=== PATIENT | male | born 1950 | race Caucasian/White ===

== ENCOUNTER 2017-03-23 11:06 | Emergency (ER) | payer OTHER ==
[2017-03-23] MEDS ORDERED: Bacitracin Oint 1 GM U/D Packet TOP ONE (11:15)
--- NOTE | 2017-03-23 11:17 | EDM.PDOC ---
ED HPI GENERAL MEDICAL PROBLEM - General Chief Complaint: Laceration Stated Complaint: CUT ON HEAD Time Seen by Provider: 03/23/17 11:06 Source of Information: Reports: Patient History Limitations: Reports: No Limitations - History of Present Illness INITIAL COMMENTS - FREE TEXT/NARRATIVE: HISTORY AND PHYSICAL: History of present illness: [Comes to the emergency room complaining of a laceration to his scalp. He is employed by [employer] and states that this morning he hit the top of his head on some metal bleachers. Had some bleeding at the time of injury. He denies any pain and did not experience any loss of consciousness.. He has no other complaints or concerns at this time. Tetanus was within the last 5 years.] Review of systems: As per history of present illness and below otherwise all systems reviewed and negative. Past medical history: As per history of present illness and as reviewed below otherwise noncontributory. Surgical history: As per history of present illness and as reviewed below otherwise noncontributory. Social history: No reported history of drug or alcohol abuse. Family history: As per history of present illness and as reviewed below otherwise noncontributory. Physical exam: HEENT: 2.5 cm laceration to midline parietal scalp. Is mostly superficial but does have some gaping to the anterior aspect. Wound is cleaned with copious amounts of normal saline and Betadine. Extremities: Neurovascular unremarkable. Neuro: Awake, alert, oriented. Motor and sensory unremarkable throughout. Exam nonfocal. Impression: [Scalp Laceration] Plan: [Wound closed with one staple. See procedure note. Return to ER in 7 days for staple removal. His agreement with today's plan.] Definitive disposition and diagnosis as appropriate pending reevaluation and review of above. Head Pain Score (Numeric/FACES): 4 - Related Data Allergies Allergy/AdvReac Type Severity Reaction Status Date / Time No Known Allergies Allergy Verified 03/23/17 11:08 Home Meds: Home Meds . [Unable to Verify Home Med List] 03/23/17 [History] Past Medical History Cardiovascular History: Reports: High Cholesterol, Hypertension Social & Family History - Tobacco Use Smoking Status *Q: Never Smoker Second Hand Smoke Exposure: No - Caffeine Use Caffeine Use: Reports: Coffee - Recreational Drug Use Recreational Drug Use: No ED ROS GENERAL - Review of Systems Review Of Systems: ROS reveals no pertinent complaints other than HPI. ED EXAM, SKIN/RASH Exam: See Below ED SKIN PROCEDURES - Laceration/Wound Repair Midline Head Lac/wound length in cm: 2.5 Appearance: superficial, clean Distal NVT: neuro & vascular intact Skin prep: providone-iodine (betadine), saline Closed with: esvin # of sutures: 1 Sterile dressing applied: nurse Tetanus status addressed: Yes Complications: No Course - Orders/Labs/Meds Meds: Medications Discontinued Medications Generic Name Dose Route Start Last Admin Trade Name Michelle PRN Reason Stop Dose Admin Bacitracin 1 dose 03/23/17 11:15 Bacitracin Oint 1 Gm TOP 03/23/17 11:16 ONETIME ONE Departure - Departure Time of Disposition: 11:20 Disposition: Home, Self-Care 01 Condition: good Clinical Impression: Laceration of scalp Qualifiers: Encounter type: initial encounter Qualified Code(s): S01.01XA - Laceration without foreign body of scalp, initial encounter - Discharge Information Instructions: Laceration Care, Adult Referrals: PCP,None [Primary Care Provider] - Forms: ED Department Discharge Additional Instructions: The following information is given to patients seen in the emergency department who are being discharged to home. This information is to outline your options for follow-up care. We provide all patients seen in our emergency department with a follow-up referral. The need for follow-up, as well as the timing and circumstances, are variable depending upon the specifics of your emergency department visit. If you don't have a primary care physician on staff, we will provide you with a referral. We always advise you to contact your personal physician following an emergency department visit to inform them of the circumstance of the visit and for follow-up with them and/or the need for any referrals to a consulting specialist. The emergency department will also refer you to a specialist when appropriate. This referral assures that you have the opportunity for follow-up care with a specialist. All of these measure are taken in an effort to provide you with optimal care, which includes your follow-up. Under all circumstances we always encourage you to contact your private physician who remains a resource for coordinating your care. When calling for follow-up care, please make the office aware that this follow-up is from your recent emergency room visit. If for any reason you are refused follow-up, please contact the [facility] emergency department at and asked to speak to the emergency department charge nurse. FRANCIE Carrillo [facility] [address] [place] [id number] Followup with your primary care provider in 48-72 hours. Return to ER in 7 days to have staple removed. Tylenol or ibuprofen as needed for discomfort. Return to ER as needed as discussed.
[2017-03-23 11:28] VITALS: BP 125/76
== END 2017-03-23 11:26 | disposition home or self-care (01) ==
LOC: MW.ED 11:06
DX: S01.01XA Laceration without foreign body of scalp, initial encounter (principal); E78.00 Pure hypercholesterolemia, unspecified; I10 Essential (primary) hypertension; W22.8XXA Striking against or struck by other objects, initial encounter
CPT/HCPCS: 12001; 99282

== ENCOUNTER 2017-03-30 15:50 | Emergency (ER) | payer OTHER | END 2017-03-30 16:31 | disposition home or self-care (01) | LOC: MW.ED 15:50 | DX: Z48.02 Encounter for removal of sutures (principal) ==

== ENCOUNTER 2017-06-17 22:05 | Emergency (ER) | payer OTHER ==
[2017-06-17] MEDS ORDERED: Bacitracin Oint 1 GM U/D Packet TOP ONE (22:17)
--- NOTE | 2017-06-17 22:23 | EDM.PDOC ---
ED HPI GENERAL MEDICAL PROBLEM - General Chief Complaint: Laceration Stated Complaint: LACERATION RT HAND/MIDDLE FINGER Time Seen by Provider: 06/17/17 22:12 - History of Present Illness INITIAL COMMENTS - FREE TEXT/NARRATIVE: HISTORY AND PHYSICAL: History of present illness: The patient is a 67-year-old male whose tetanus is up-to-date and presents with injury to his right middle finger that occurred on a saw while at home just prior to arrival. The patient says he was having no systemic complaints when this occurred and the only reason why he came to the ER as it wouldn't stop bleeding. He placed a dressing on it and came here. He has no neurosensory changes in the finger and no other injury to the hand except a very superficial abrasion to the right fourth tuft soft tissue. He has full range of motion of all of his digits. He is right-hand dominant Review of systems: As per history of present illness and below otherwise all systems reviewed and negative. Past medical history: As per history of present illness and as reviewed below otherwise noncontributory. Surgical history: As per history of present illness and as reviewed below otherwise noncontributory. Social history: No reported history of drug or alcohol abuse. Family history: As per history of present illness and as reviewed below otherwise noncontributory. Physical exam: Gen.: Well-developed well-nourished overweight man who is nontoxic HEENT: Atraumatic, normocephalic, negative for conjunctival pallor or scleral icterus, mucous membranes moist, trachea midline. Lungs: Clear to auscultation, breath sounds equal bilaterally, chest nontender. Heart: S1S2, regular ate and rhythm no overt murmurs Abdomen: Deferred Pelvis: Deferred Genitourinary: Deferred. Rectal: Deferred. Extremities: Atraumatic with the exception of the tuft soft tissue of digits 3 and 4 on the right hand--- and digit 4 there is a very superficial abrasion without any gross swelling or tenderness and at the tuft soft tissue of digit 3 there is a 1 cm area of tissue loss seen without any active bleeding or tenderness. There is full range of motion of the digit flexion and extension. All other digits of the hand and the remainder of the right upper extremity are without defects or deformities. Neurovascular unremarkable. Neuro: Awake, alert, oriented. Gait is intact Motor and sensory unremarkable throughout. Exam nonfocal. Diagnostics: [] Therapeutics: wound care Impression: Superficial laceration right third digit with skin loss Definitive disposition and diagnosis as appropriate pending reevaluation and review of above. - Related Data Allergies Allergy/AdvReac Type Severity Reaction Status Date / Time No Known Allergies Allergy Verified 03/23/17 11:08 Home Meds: Home Meds . [Unable to Verify Home Med List] 03/23/17 [History] Past Medical History Cardiovascular History: Reports: High Cholesterol, Hypertension Social & Family History - Tobacco Use Smoking Status *Q: Never Smoker Second Hand Smoke Exposure: No - Caffeine Use Caffeine Use: Reports: Coffee - Recreational Drug Use Recreational Drug Use: No ED ROS GENERAL - Review of Systems Review Of Systems: ROS reveals no pertinent complaints other than HPI. ED EXAM, SKIN/RASH Exam: See Below (see dictation) Course - Orders/Labs/Meds Orders: Active Orders 24 hr Category Date Time Status Communication Order [RC] STAT Care 06/17/17 22:17 Ordered Bacitracin [Bacitracin Oint 1 GM] Med 06/17/17 22:17 Once 1 dose TOP ONETIME ONE Departure - Departure Time of Disposition: 22:21 Disposition: Home, Self-Care 01 Condition: Good Clinical Impression: Laceration of finger Qualifiers: Encounter type: initial encounter Finger: middle finger Damage to nail status: without damage Foreign body presence: without foreign body Laterality: right Qualified Code(s): S61.212A - Laceration without foreign body of right middle finger without damage to nail, initial encounter - Discharge Information Forms: ED Department Discharge Additional Instructions: The following information is given to patients seen in the emergency department who are being discharged to home. This information is to outline your options for follow-up care. We provide all patients seen in our emergency department with a follow-up referral. The need for follow-up, as well as the timing and circumstances, are variable depending upon the specifics of your emergency department visit. If you don't have a primary care physician on staff, we will provide you with a referral. We always advise you to contact your personal physician following an emergency department visit to inform them of the circumstance of the visit and for follow-up with them and/or the need for any referrals to a consulting specialist. The emergency department will also refer you to a specialist when appropriate. This referral assures that you have the opportunity for followup care with a specialist. All of these measure are taken in an effort to provide you with optimal care, which includes your followup. Under all circumstances we always encourage you to contact your private physician who remains a resource for coordinating your care. When calling for followup care, please make the office aware that this follow-up is from your recent emergency room visit. If for any reason you are refused follow-up, please contact the [facility] emergency department at and ask to speak to the emergency department charge nurse. [facility]- Internal Medicine and Family [address] [id number] Please keep area clean and dry for the next 24 hours then remove dressing and cleanse with mild soap and water pat dry and apply bacitracin or Neosporin. If you need to cover the area please do not use Band-Aids but only gauze as the Band-Aids will make the tissue moist. Return to ER as needed and as discussed and follow-up with your provider in the clinic in the next few days for further care and evaluation. - My Orders Last 24 Hours: My Active Orders 06/17/17 22:17 Communication Order [RC] STAT Bacitracin [Bacitracin Oint 1 GM] 1 dose TOP ONETIME ONE - Assessment/Plan Last 24 Hours: My Active Orders 06/17/17 22:17 Communication Order [RC] STAT Bacitracin [Bacitracin Oint 1 GM] 1 dose TOP ONETIME ONE
[2017-06-17 22:38] VITALS: BP 135/71
== END 2017-06-17 22:39 | disposition home or self-care (01) ==
LOC: MW.ED 22:05
DX: S61.212A Laceration without foreign body of right middle finger without damage to nail, initial encounter (principal); S60.414A Abrasion of right ring finger, initial encounter; I10 Essential (primary) hypertension; E78.00 Pure hypercholesterolemia, unspecified; W27.8XXA Contact with other nonpowered hand tool, initial encounter; Y92.009 Unspecified place in unspecified non-institutional (private) residence as the place of occurrence of the external cause
CPT/HCPCS: 99282

== ENCOUNTER 2020-01-10 05:19 | Day surgery (SDC) | payer OTHER ==
[2020-01-10] MEDS ORDERED: HYDROmorphone 1 MG/ML Syringe IVPUSH ONE ×2 (05:44→06:11)
[2020-01-10] MEDS ORDERED: Ondansetron 4 MG/2 ML SDV IVPUSH ONE (05:44)
--- NOTE | 2020-01-10 05:48 | CR ---
INDICATION: Shoulder pain with deformity TECHNIQUE: Shoulder radiograph 1 view right COMPARISON: None FINDINGS: Bone: No acute fractures or aggressive bone lesions are identified. Joint: Inferior dislocation the glenohumeral joint is noted. The acromioclavicular joint is unremarkable. Soft tissue: Unremarkable. The visualized hemithorax is unremarkable in appearance. No radiopaque foreign bodies are seen. IMPRESSIONS: 1. Inferior dislocation the glenohumeral joint is noted. 2. Complete radiographic assessment will require at least an additional orthogonal view. Dictated by Vance Ivan MD @ 01/10/2020 5:46:27 AM Dictated by: Vance Ivan MD @ 01/10/2020 05:46:33 (Electronically Signed)
--- NOTE | 2020-01-10 06:01 | EDM.PDOC ---
ED HPI GENERAL MEDICAL PROBLEM - General Chief Complaint: Upper Extremity Injury/Pain Stated Complaint: SPOKE TO NURSE Time Seen by Provider: 01/10/20 05:28 Source of Information: Reports: Patient - History of Present Illness INITIAL COMMENTS - FREE TEXT/NARRATIVE: CC shoulder pain HPI: This is a 69-year-old male that slipped and fell and is dislocated his right shoulder. PMHX/PSHX: Hypertension thumb surgery Social History: Negative for tobacco, negative for alcohol, negative for street drugs or marijuana Family history: Hypertension ROS: see chart PE: VS afebrile vital signs stable General: No apparent distress Head: Atraumatic normocephalic no lumps bumps or bruises Eyes: EOMI PERRLA scera white, conjuntiva pink Ears: TMs intact. No hemotympanum. No signs of infection or mastoid tenderness Nose: No epistaxis. Nares patent. No septal wall hematoma Throat: No pharyngeal erythema, exudate or tonsillar enlargement Neck: Supple. No cervical lymphadenopathy Chest wall: No point tenderness Heart: Regular rate and rhythm without murmur gallop or rub Lungs: Clear to auscultation and percussion without rale, rhonchi or wheeze. Abdomen: Soft nontender nondistended without guarding rigidity or rebound. Bowel sounds present. Neck: No spinal point tenderness full range of motion in all 6 directions Back: No spinal paraspinal or CVA tenderness Extremities: Limited range of motion squared off right shoulder Skin: Warm, dry and intact. No rashes, erythema or warmth Neurologic: Cranial nerves II through XII intact bilaterally. No focal motor or sensory deficits noted in the radial median ulnar and axillary nerve distributions Vascular: Bounding radial and ulnar pulses MDM: Differential diagnosis: Versus dislocation ED course: I made a few attempts at reduction without medications per the patient's request. I tried farer technique to no avail. Require conscious sedation. Orthopedics was called anesthesia was called patient will go to operating room for reduction Final Diagnosis: Dislocation Disposition: Admit to the OR R shoulder Pain Score (Numeric/FACES): 10 - Related Data Allergies Allergy/AdvReac Type Severity Reaction Status Date / Time No Known Allergies Allergy Verified 01/10/20 05:33 Home Meds: Home Meds . [Unable to Verify Home Med List] 03/23/17 [History] Past Medical History Cardiovascular History: Reports: High Cholesterol, Hypertension - Infectious Disease History Infectious Disease History: Reports: Chicken Pox Social & Family History - Tobacco Use Smoking Status *Q: Never Smoker - Caffeine Use Caffeine Use: Reports: Coffee - Recreational Drug Use Recreational Drug Use: No Review of Systems - Review of Systems Review Of Systems: Comprehensive ROS is negative, except as noted in HPI. ED EXAM, GENERAL - Physical Exam Exam: See Below Free Text/Narrative:: See my note Course - Vital Signs Last Recorded V/S: Last Vital Signs Temp 36.7 C 01/10/20 05:26 Pulse 89 01/10/20 05:26 Resp 20 01/10/20 05:26 BP Pulse Ox 98 01/10/20 05:26 - Orders/Labs/Meds Meds: Medications Discontinued Medications Generic Name Dose Route Start Last Admin Trade Name Michelle PRN Reason Stop Dose Admin Hydromorphone HCl 0.5 mg 01/10/20 05:44 Dilaudid IVPUSH 01/10/20 05:45 ONETIME ONE Ondansetron HCl 4 mg 01/10/20 05:44 Zofran IVPUSH 01/10/20 05:45 ONETIME ONE Departure - Departure Time of Disposition: 05:57 Disposition: Refer to Observation Clinical Impression: Dislocation of right shoulder joint Qualifiers: Encounter type: initial encounter Qualified Code(s): S43.004A - Unspecified dislocation of right shoulder joint, initial encounter - Discharge Information Instructions: Shoulder Dislocation, [id number] Referrals: PCP,Not In Area [Primary Care Provider] - Sepsis Event Note - Evaluation Sepsis Screening Result: No Definite Risk - Focused Exam Vital Signs: Vital Signs Temp Pulse Resp Pulse Ox 01/10/20 05:26 36.7 C 89 20 98 Date Exam was Performed: 01/10/20 Time Exam was Performed: 05:55
--- NOTE | 2020-01-10 06:13 | PCM.PREANE ---
Preanesthetic Assessment - Procedure Proposed Procedure: Reduce dislocated right shoulder - Anesthesia/Transfusion/Family Hx Anesthesia History: Prior Anesthesia Without Reaction Type of Anesthesia Reaction: Excessive Nausea/Vomiting - Review of Systems General: No Symptoms Pulmonary: No Symptoms Cardiovascular: No Symptoms Gastrointestinal: No Symptoms Neurological: No Symptoms Other: Reports: None - Physical Assessment NPO Status Date: 01/09/20 NPO Status Time: 11:55 Vital Signs: Last Vital Signs Temp 36.7 C 01/10/20 05:26 Pulse 89 01/10/20 05:26 Resp 20 01/10/20 05:26 BP Pulse Ox 98 01/10/20 05:26 Height: 5 ft 8 in Weight: 108.862 kg ASA Class: 2E Mental Status: Alert & Oriented x3 Dentition: Reports: Normal Dentition Thyro-Mental Finger Breadths: 3 Mouth Opening Finger Breadths: 3 ROM/Head Extension: Full Lungs: Clear to Auscultation, Normal Respiratory Effort Cardiovascular: Regular Rate, Regular Rhythm - Allergies Allergies/Adverse Reactions: Allergies Allergy/AdvReac Type Severity Reaction Status Date / Time No Known Allergies Allergy Verified 01/10/20 05:33 - Anesthesia Plan Free Text/Narrative:: Plan GETA Pre-Op Medication Ordered: None - Acknowledgements Anesthesia Type Planned: General Anesthesia Pt an Appropriate Candidate for the Planned Anesthesia: Yes Alternatives and Risks of Anesthesia Discussed w Pt/Guardian: Yes Pt/Guardian Understands and Agrees with Anesthesia Plan: Yes PreAnesthesia Questionnaire HEENT History: Reports: None Cardiovascular History: Reports: High Cholesterol, Hypertension Respiratory History: Reports: None Gastrointestinal History: Reports: GERD Genitourinary History: Reports: None Musculoskeletal History: Reports: None Neurological History: Reports: None Psychiatric History: Reports: None Endocrine/Metabolic History: Reports: None Hematologic History: Reports: None Immunologic History: Reports: None Oncologic (Cancer) History: Reports: None Dermatologic History: Reports: None - Infectious Disease History Infectious Disease History: Reports: Chicken Pox - Past Surgical History Musculoskeletal Surgical History: Reports: Other (See Below) (right thumb) - SUBSTANCE USE Smoking Status *Q: Never Smoker Recreational Drug Use History: No - HOME MEDS Home Medications: Home Meds Lisinopril [Zestril] 10 mg PO DAILY 01/10/20 [History] Simvastatin 80 mg PO DAILY 01/10/20 [History] amLODIPine Besylate [Amlodipine Besylate] 10 mg PO DAILY 01/10/20 [History] - CURRENT (IN HOUSE) MEDS Current Meds: Current Medications Discontinued Medications Hydromorphone HCl (Dilaudid) 0.5 mg IVPUSH ONETIME ONE Stop: 01/10/20 05:45 Last Admin: 01/10/20 06:02 Dose: 0.5 mg Ondansetron HCl (Zofran) 4 mg IVPUSH ONETIME ONE Stop: 01/10/20 05:45 Last Admin: 01/10/20 06:02 Dose: 4 mg
[2020-01-10] MEDS ORDERED: Midazolam 1 MG/ML 2 ML SDV ONE (06:25)
[2020-01-10] MEDS ORDERED: fentaNYL 100 MCG/2 ML SDV ONE (06:25)
[2020-01-10] MEDS ORDERED: Propofol 200 MG/20 ML SDV ONE (06:25)
--- NOTE | 2020-01-10 06:36 | PCM.CONS ---
H&P History of Present Illness - General Date of Service: 01/10/20 Admit Problem/Dx: Right shoulder dislocation Source of Information: Patient, Other (Dr. Brunson) History Limitations: Reports: No Limitations - History of Present Illness Initial Comments - Free Text/Narative: Patient is a 69-year-old right hand dominant male with right shoulder dislocation. Patient slipped and fell. He was seen in the emergency room. He was noted to have a shoulder dislocation. Attempts were made at reduction which were unsuccessful by the emergency room physician. He denies hand numbness. He denies other injuries. R shoulder Pain Score (Numeric/FACES): 10 - Related Data Allergies/Adverse Reactions: Allergies Allergy/AdvReac Type Severity Reaction Status Date / Time No Known Allergies Allergy Verified 01/10/20 05:33 Home Medications: Home Meds Lisinopril [Zestril] 10 mg PO DAILY 01/10/20 [History] Simvastatin 80 mg PO DAILY 01/10/20 [History] amLODIPine Besylate [Amlodipine Besylate] 10 mg PO DAILY 01/10/20 [History] Past Medical History HEENT History: Reports: None Cardiovascular History: Reports: High Cholesterol, Hypertension Respiratory History: Reports: None Gastrointestinal History: Reports: GERD Genitourinary History: Reports: None Musculoskeletal History: Reports: None Neurological History: Reports: None Psychiatric History: Reports: None Endocrine/Metabolic History: Reports: None Hematologic History: Reports: None Immunologic History: Reports: None Oncologic (Cancer) History: Reports: None Dermatologic History: Reports: None - Infectious Disease History Infectious Disease History: Reports: Chicken Pox - Past Surgical History Musculoskeletal Surgical History: Reports: Other (See Below) (right thumb) Social & Family History - Tobacco Use Smoking Status *Q: Never Smoker - Caffeine Use Caffeine Use: Reports: Coffee - Recreational Drug Use Recreational Drug Use: No H&P Review of Systems - Review of Systems: Review Of Systems: See Below Musculoskeletal: Reports: Shoulder Pain Exam - Exam Exam: See Below - Vital Signs Vital Signs: Last Vital Signs Temp 98.0 F 01/10/20 05:26 Pulse 89 01/10/20 05:26 Resp 20 01/10/20 05:26 BP Pulse Ox 98 01/10/20 05:26 Weight: 240 lb - Exam Physical Exam Comments:: Well-developed, well-nourished male Distress due to shoulder pain Skin intact Chest clear to auscultation Cardiac regular rate and rhythm Moves fingers Normal sensation to light touch in median, ulnar, and radial nerve distributions Radial pulses palpable Sepsis Event Note - Evaluation Sepsis Screening Result: No Definite Risk - Focused Exam Vital Signs: Vital Signs Temp Pulse Resp Pulse Ox 01/10/20 05:26 98.0 F 89 20 98 Date Exam was Performed: 01/10/20 Time Exam was Performed: 06:31 Consult PN Assessment/Plan Procedures: Procedures EMERGENCY DEPT VISIT (06/17/17) RPR S/N/AX/GEN/TRNK 2.5CM/< (03/23/17) X-RAY EXAM OF HUMERUS (04/14/17) Problem List Initiated/Reviewed/Updated: Yes Plan: Due to failed attempts in the emergency room and discussion of risks and benefits, he was consented for closed reduction in the operating room. His signed the consent because he is unable to sign due to shoulder dislocation. Crew been brought in for reduction the main OR.
--- NOTE | 2020-01-10 07:11 | PCM.OPNOTE ---
- General Post-Op/Procedure Note Date of Surgery/Procedure: 01/10/20 Operative Procedure(s): Closed reduction of right shoulder dislocation Findings: Right shoulder dislocation Pre Op Diagnosis: Right shoulder dislocation Post-Op Diagnosis: Right shoulder dislocation Anesthesia Technique: General ET Tube Primary Surgeon: Lalit Shin EBL in mLs: 0 Complications: None Free Text/Narrative:: Patient slipped and fell resulting in a right shoulder dislocation. Dislocation was unable to be reduced in the emergency room. The risks and benefits of closed reduction were discussed with the patient and his spouse. Patient consented to proceed and his spouse signed his consent because his dominant arm at a right shoulder dislocation. After general anesthesia and complete paralysis, closed reduction was performed with longitudinal traction and countertraction placed in the right axilla. The reduction was successful and the shoulder was felt to palpably reduce. Postreduction x-rays confirm the reduction. Patient was placed in a shoulder immobilizer. Name management: Ibuprofen Antibiotics not indicated Venous thromboembolus prophylaxis not indicated. Restrictions: Patient should remain in shoulder mobilizer except for hygiene. No external rotation greater than neutral. Refer to physical therapy after being seen in clinic for follow-up.
[2020-01-10] MEDS ORDERED: Rocuronium 100 MG/10 ML Syringe ONE (07:34)
[2020-01-10] MEDS ORDERED: fentaNYL 100 MCG/2 ML SDV IVPUSH PRN (07:39)
[2020-01-10] MEDS ORDERED: Atropine 0.1 MG/ML 10 ML Syringe IVPUSH PRN ×2 (07:39)
[2020-01-10] MEDS ORDERED: Naloxone 0.4 MG/ML Syringe IVPUSH PRN (07:39)
[2020-01-10] MEDS ORDERED: EPINEPHrine 1:10,000 1 MG/10 ML Syringe IVPUSH PRN (07:39)
--- NOTE | 2020-01-10 07:47 | CR ---
Right shoulder: Single AP view of the right shoulder was obtained. Comparison: Previous right shoulder study performed earlier on the same date (5:33 AM). Previous dislocation has been reduced. No discrete fracture or other bony abnormality is appreciated. Endotracheal tube is partially visualized lying at the lower level of the clavicles above the hemalatha. Impression: 1. Previous dislocation has been reduced. 2. Endotracheal tube is partially visualized and appears to be satisfactory in position as seen on this exam. Diagnostic code #2 Study was dictated in [place] Standard Time
[2020-01-10 08:59] VITALS: PULSE 65
[2020-01-10 09:00] VITALS: BP 113/70
--- NOTE | 2020-01-10 11:25 | PCM.POSTAN ---
POST ANESTHESIA ASSESSMENT - MENTAL STATUS Mental Status: Alert, Oriented - VITAL SIGNS Vital Signs: Last Vital Signs Temp 97.7 F 01/10/20 08:12 Pulse 65 01/10/20 08:40 Resp 14 01/10/20 08:59 BP 113/70 01/10/20 08:59 Pulse Ox 96 01/10/20 09:39 - RESPIRATORY Respiratory Status: Respiratory Rate WNL, Airway Patent, Supplemental Oxygen ( pt refuses) - CARDIOVASCULAR CV Status: Pulse Rate WNL, Blood Pressure Stable - GASTROINTESTINAL GI Status: No Symptoms - POST OP HYDRATION Hydration Status: Adequate & Stable
--- NOTE | 2020-01-10 11:25 | PCM48HPAN ---
Post Anesthesia Note - EVALUATION WITHIN 48HRS OF ANESTHETIC Vital Signs in Normal Range: Yes Patient Participated in Evaluation: Yes Respiratory Function Stable: Yes Airway Patent: Yes Cardiovascular Function Stable: Yes Hydration Status Stable: Yes Pain Control Satisfactory: Yes Nausea and Vomiting Control Satisfactory: Yes Mental Status Recovered: Yes Vital Signs: Last Vital Signs Temp 97.7 F 01/10/20 08:12 Pulse 65 01/10/20 08:40 Resp 14 01/10/20 08:59 BP 113/70 01/10/20 08:59 Pulse Ox 96 01/10/20 09:39 - COMMENTS/OBSERVATIONS Free Text/Narrative:: sats 94-96% on room air
== END 2020-01-10 10:05 | disposition home or self-care (01) ==
LOC: MW.ED 05:19 → MW.SDS 05:58
PROVIDERS: ATTEND Orthopaedic Surgery
DX: S43.034A Inferior dislocation of right humerus, initial encounter (principal); E78.00 Pure hypercholesterolemia, unspecified; I10 Essential (primary) hypertension; K21.9 Gastro-esophageal reflux disease without esophagitis; W01.0XXA Fall on same level from slipping, tripping and stumbling without subsequent striking against object, initial encounter
CPT/HCPCS: 23655; 73020; 96374; 96375; 99283; J1170; J2250; J2405; J2704; J3010; 01620

== ENCOUNTER 2025-04-14 09:33 | Emergency (ER) | payer OTHER ==
[2025-04-14] MEDS: Ketorolac 30 MG/ML SDV IVPUSH ONE (10:10)
[2025-04-14] MEDS: Sodium Chloride 0.9% 1,000 ML IV SCH (10:11)
[2025-04-14] MEDS: Ondansetron 4 MG/2 ML SDV IVPUSH ONE (10:11)
[2025-04-14] MEDS ORDERED: Propofol 200 MG/20 ML SDV IVPUSH PRN (10:19)
[2025-04-14] MEDS: Propofol 200 MG/20 ML SDV IVPUSH PRN (10:28)
[2025-04-14] MEDS ORDERED: oxyCODONE 5 MG Tab PO PRN (11:12)
[2025-04-14 11:28] VITALS: BP 152/79; PULSE 60
[2025-04-14] MEDS: Acetaminophen 500 MG Tab PO ONE (11:34)
== END 2025-04-14 11:29 | disposition home or self-care (01) ==
LOC: MW.ED 09:33
DX: S43.014A Anterior dislocation of right humerus, initial encounter (principal); I10 Essential (primary) hypertension; E78.00 Pure hypercholesterolemia, unspecified; Z79.899 Other long term (current) drug therapy; W18.39XA Other fall on same level, initial encounter; Y93.89 Activity, other specified
CPT/HCPCS: 23650; 73030; 96361; 96374; 96375; 99283; J1885; J2405; J2704; J7030; 23655